=== PATIENT | male | born 1945 | race Caucasian/White ===

== ENCOUNTER 2017-10-31 20:10 | Emergency (ER) | payer BC ==
[~2017-10-31] VITALS: Ht 175.3 cm; Wt 85.9 kg
[~2017-10-31 20:10] MED LIST: CIALIS5 MG PO; NAPROSYN 2250 MG/TAB PO; PRILOSEC 20MG20 MG PO; WELLBUTRIN SR200 MG PO; ZOCOR 40MG40 MG PO
[2017-10-31 20:19] VITALS: TEMP 97.6
[2017-10-31 20:53] LABS: BASO % 0.3 % (0.0-2.0); EOS # 0.1 (0.0-0.7); EOS % 0.9 % (0-4.0); GRAN # 10.5 (1.4-6.5); GRAN % 80.3 % (42.2-75.2); HEMATOCRIT 50.6 % (42.0-52.0); HEMOGLOBIN 17.3 g/dl (13.5-18.0); LYMPH % 7.7 % (20.0-51.0); MEAN CELL VOLUME 89 fl (80.0-100.0); MEAN CORPUSCULAR HEMOGLOBIN 31 pg (27.0-31.0); MEAN CORPUSCULAR HGB CONC 34 g/dl (33.0-37.0); MONO # 1.4 (0.1-0.6); MONO % 10.4 % (1.7-9.3); PLATELET COUNT 184 K/mm3 (130-400); RED BLOOD COUNT 5.67 M/mm3 (4.20-5.60); REDCELL DISTRIBUTION WIDTH-CV 13.1 % (11.5-14.5)
[2017-10-31 21:04] LABS: ALBUMIN 4.8 gm/dL (3.5-5.0); BILIRUBIN,TOTAL 1.1 mg/dL (0.0-1.0); C-REACTIVE PROTEIN 2.5 mg/dL (0.0-0.9); CALCIUM 9.9 mg/dL (8.4-10.2); CREATININE, serum 1.01 mg/dL (0.66-1.25); POTASSIUM 4.1 mmol/L (3.4-5.0); TOTAL PROTEIN 7.5 gm/dL (6.4-8.2)
[2017-10-31 21:33] LABS: COLLECTION METHOD CLEAN CATCH
[2017-10-31 21:38] LABS: PH 7 (5-8); SQUAMOUS EPITHELIAL 0-2 /hpf; URINE APPEARANCE Clear; URINE BACTERIA None Seen /hpf; URINE BILIRUBIN Negative (NEGATIVE); URINE BLOOD Negative (NEGATIVE); URINE COLOR Yellow; URINE GLUCOSE Negative (NEGATIVE); URINE KETONE Negative (NEGATIVE); URINE LEUKOCYTE ESTERASE Negative (NEGATIVE); URINE NITRATE Negative (NEGATIVE); URINE PROTEIN(semi-quant) Negative (NEGATIVE); URINE RBC 0-2 /hpf; URINE UROBILINOGEN Negative (NEGATIVE)
[2017-10-31] MEDS ORDERED: ZOFRAN 4MG T4 MG/TAB PO (22:48)
[2017-10-31 23:23] VITALS: BP 133/78; PULSE 78
== END 2017-10-31 23:25 | disposition home or self-care (01) ==
LOC: COL.ER 20:10
PROVIDERS: Emergency Medicine
DX: K56.600 Partial intestinal obstruction, unspecified as to cause (principal); K21.9 Gastro-esophageal reflux disease without esophagitis; E78.5 Hyperlipidemia, unspecified
CPT/HCPCS: J7030; Q9967

== ENCOUNTER → 2019-01-09 | Emergency (ER) | payer BC ==
[~2019-01-09] VITALS: Ht 175.3 cm; Wt 81.8 kg
[~2019-01-09] MED LIST changes: +ZOFRAN 4MG T4 MG/TAB PO; +ZOFRAN ODT4 MG PO
[2019-01-09 14:16] VITALS: BP 180/74; TEMP 97.6
[2019-01-09 14:49] LABS: BASO % 0.4 % (0.0-2.0); EOS % 0.2 % (0-4.0); GRAN # 3.8 (1.4-6.5); GRAN % 80.5 % (42.2-75.2); LYMPH # 0.3 (1.2-3.4); LYMPH % 6.8 % (20.0-51.0); MEAN CELL VOLUME 89 fl (80.0-100.0); MEAN CORPUSCULAR HGB CONC 35 g/dl (33.0-37.0); MEAN PLATELET VOLUME 9.3 fl (7.4-10.4); MONO # 0.6 (0.1-0.6); MONO % 11.9 % (1.7-9.3); PLATELET COUNT 193 K/mm3 (130-400); RED BLOOD COUNT 6.32 M/mm3 (4.20-5.60); REDCELL DISTRIBUTION WIDTH-CV 13.3 % (11.5-14.5)
[2019-01-09 14:51] LABS: HEMATOCRIT 56.4 % (42.0-52.0); HEMOGLOBIN 19.6 g/dl (13.5-18.0); MEAN CORPUSCULAR HEMOGLOBIN 31 pg (27.0-31.0)
[2019-01-09 15:01] LABS: ALBUMIN 4.5 gm/dL (3.5-5.0); BILIRUBIN,TOTAL 0.8 mg/dL (0.0-1.0); CALCIUM 9.4 mg/dL (8.4-10.2); CREATININE, serum 0.98 mg/dL (0.66-1.25); POTASSIUM 4.2 mmol/L (3.4-5.0); TOTAL PROTEIN 7.9 gm/dL (6.4-8.2)
[2019-01-09 15:12] LABS: C-REACTIVE PROTEIN 14.9 mg/dL (0.0-0.9)
[2019-01-09 16:08] LABS: BAND 17 % (0-10); LYMPHOCYTE 9 % (20.0-51.0); NEUTROPHILS 58 % (42.0-75.2); PLATELET ESTIMATE NORMAL (NORMAL)
[2019-01-09 16:56] VITALS: PULSE 73
== END ==
LOC: COL.ER 14:11
PROVIDERS: Emergency Medicine
DX: K52.9 Noninfective gastroenteritis and colitis, unspecified (principal)
CPT/HCPCS: J0780; J2405; J7030; Q9967

== ENCOUNTER → 2021-03-26 | Outpatient (CLI) | payer BC | LOC: MHCPAIN 14:13 | DX: M47.817 Spondylosis without myelopathy or radiculopathy, lumbosacral region (principal); M54.5 Low back pain; M53.3 Sacrococcygeal disorders, not elsewhere classified; G89.29 Other chronic pain | CPT/HCPCS: G0463 ==

== ENCOUNTER → 2021-04-01 | Outpatient (CLI) | payer BC | LOC: MHCPAIN 12:10 | DX: M47.817 Spondylosis without myelopathy or radiculopathy, lumbosacral region (principal); M54.16 Radiculopathy, lumbar region | CPT/HCPCS: J1100; Q9967 ==

== ENCOUNTER → 2021-04-16 | Outpatient (CLI) | payer BC | LOC: MHCPAIN 13:20 | DX: M47.817 Spondylosis without myelopathy or radiculopathy, lumbosacral region (principal); M53.3 Sacrococcygeal disorders, not elsewhere classified; M54.16 Radiculopathy, lumbar region | CPT/HCPCS: G0463 ==

== ENCOUNTER → 2021-04-22 | Outpatient (CLI) | payer BC | LOC: MHCPAIN 10:28 | DX: M47.817 Spondylosis without myelopathy or radiculopathy, lumbosacral region (principal); M54.16 Radiculopathy, lumbar region | CPT/HCPCS: J1100; Q9967 ==

== ENCOUNTER → 2021-05-08 | Outpatient (CLI) | payer BC | LOC: MHCPAIN 12:38 | DX: M47.816 Spondylosis without myelopathy or radiculopathy, lumbar region (principal); M54.16 Radiculopathy, lumbar region; M53.3 Sacrococcygeal disorders, not elsewhere classified | CPT/HCPCS: G0463 ==

== ENCOUNTER 2021-06-27 09:45 | Outpatient (RCR) | payer BC | END 2021-07-02 | disposition still patient (30) | LOC: WSPT | DX: M47.896 Other spondylosis, lumbar region (principal); M53.3 Sacrococcygeal disorders, not elsewhere classified ==

== ENCOUNTER → 2021-07-17 | Outpatient (CLI) | payer BC | LOC: MHCPAIN 11:50 | DX: M47.816 Spondylosis without myelopathy or radiculopathy, lumbar region (principal); M53.3 Sacrococcygeal disorders, not elsewhere classified; M48.062 Spinal stenosis, lumbar region with neurogenic claudication; M54.16 Radiculopathy, lumbar region | CPT/HCPCS: G0463 ==

== ENCOUNTER 2021-10-04 10:15 | Outpatient (RCR) | payer BC | END 2021-10-04 12:09 | disposition home or self-care (01) | LOC: MKS.ESL.PT 10:15 | DX: H81.13 Benign paroxysmal vertigo, bilateral (principal) ==

== ENCOUNTER → 2022-01-10 | Outpatient (CLI) | payer BC | LOC: ZCOL.LAB 09:52 | DX: Z01.812 Encounter for preprocedural laboratory examination (principal); Z20.822 Contact with and (suspected) exposure to COVID-19 ==

== ENCOUNTER 2022-02-01 14:47 | Observation (INO) | payer BC ==
[~2022-02-01] VITALS: Ht 175.3 cm; Wt 86.0 kg
[2022-02-01 15:27] LABS: HEMOGLOBIN 11.3 g/dl (13.5-18.0); MEAN CELL VOLUME 87 fl (80.0-100.0); MEAN CORPUSCULAR HEMOGLOBIN 28 pg (27-31); MEAN CORPUSCULAR HGB CONC 32 g/dl (33.0-37.0); MEAN PLATELET VOLUME 8.4 fl (7.4-10.4); PLATELET COUNT 513 K/mm3 (130-400); RED BLOOD COUNT 4.03 M/mm3 (4.20-5.60); REDCELL DISTRIBUTION WIDTH-CV 14.7 % (11.5-14.5)
[2022-02-01 15:29] LABS: HEMATOCRIT 35.1 % (42.0-52.0)
[2022-02-01 15:44] LABS: C-REACTIVE PROTEIN 0.36 mg/dL (0.00-0.50)
[2022-02-01 15:45] LABS: ALBUMIN 2.8 gm/dL (3.4-4.8); BILIRUBIN,TOTAL 0.5 mg/dL (0.2-1.2); CALCIUM 8.1 mg/dL (8.4-10.2); CREATININE, serum 0.86 mg/dL (0.72-1.25); POTASSIUM 4.6 mmol/L (3.5-4.5); TOTAL PROTEIN 5.7 gm/dL (6.2-8.1)
[2022-02-01 15:51] LABS: TROPONIN-I 0.015 ng/mL (0.00-0.033)
[2022-02-01 16:18] LABS: COLLECTION METHOD CLEAN CATCH
[2022-02-01 16:24] LABS: MUCOUS Present (NOT PRESENT); PH 6 (5-8); SQUAMOUS EPITHELIAL None Seen /hpf (0-10); URINE APPEARANCE Hazy (CLEAR/HAZY); URINE BACTERIA Rare /hpf (NONE SEEN); URINE BILIRUBIN Negative (NEGATIVE); URINE BLOOD Negative (NEGATIVE); URINE COLOR Yellow (YELLOW); URINE GLUCOSE Negative (NEGATIVE); URINE KETONE Negative (NEGATIVE); URINE LEUKOCYTE ESTERASE Negative (NEGATIVE); URINE NITRATE Negative (NEGATIVE); URINE PROTEIN(semi-quant) Negative (NEGATIVE); URINE RBC 0-2 /hpf (0-2); URINE UROBILINOGEN Negative (NEGATIVE)
[2022-02-01 16:43] LABS: BAND 5 % (0-10); BASOPHIL 1 % (0-2); EOSINOPHIL 1 % (0-4); HYPOCHROMIA 1+; LYMPHOCYTE 3 % (20.0-51.0); NEUTROPHILS 90 % (42.0-75.2); PLATELET ESTIMATE INCREASED (NORMAL)
[2022-02-01] MEDS ORDERED: LYRICA200 MG (17:28)
[2022-02-01] MEDS ORDERED: FLOMAX 0.40.4 MG/CAP (17:29)
[2022-02-01] MEDS ORDERED: DULCOLAX TAB5 MG PO (20:33)
[2022-02-01] MEDS ORDERED: ROXICODONE 55 MG/TAB PO (20:34)
[2022-02-01] MEDS ORDERED: TYLENOL 8 HR PO (20:35)
[2022-02-01 20:36] VITALS: BP 107/92; PULSE 95; TEMP 99.6
[2022-02-02] VITALS: BP 90/52; PULSE 82; TEMP 98.7
[2022-02-02 04:46] VITALS: BP 108/49; PULSE 78; TEMP 98.8
--- NOTE | 2022-02-02 06:38 | NUR ---
ASSUMED CARE OF PATIENT AFTER RECEIVING REPORT FROM ER. ADMISSION HISTORY AND ASSESSMENT COMPLETED. PATIENT DENIES QUESTIONS OR CONCERNS. PATIENT COMPLAINED OF NEUROPATHIC PAIN IN BILATERAL HANDS. NOTIFIED KI AMADO AND RECEIVED ORDER FOR TYLENOL PER PATIENT'S REQUEST. SPINAL PRECAUTIONS MAINTAINED PER PATIENT'S POST OP INSTRUCTIONS. NO ACUTE EVENTS OVERNIGHT. PATIENT CONCERNED ABOUT CONSITPATION, REPORTS LAST BM 01/30/22. PRUNE JUICE PROVIDED. BEDSIDE REPORT TO BE GIVEN TO ONCOMING SHIFT.
[2022-02-02 07:11] LABS: BASO % 0.2 % (0.0-2.0); EOS # 0.1 K/mm3 (0.0-0.7); EOS % 0.3 % (0.0-4.0); GRAN # 15.2 K/mm3 (1.4-6.5); GRAN % 88.5 % (42.2-75.2); LYMPH # 1.2 K/mm3 (1.2-3.4); LYMPH % 6.9 % (20.0-51.0); MEAN CELL VOLUME 88 fl (80.0-100.0); MEAN CORPUSCULAR HGB CONC 32 g/dl (33.0-37.0); MEAN PLATELET VOLUME 8.8 fl (7.4-10.4); MONO # 0.6 K/mm3 (0.1-0.6); MONO % 3.7 % (1.7-9.3); PLATELET COUNT 444 K/mm3 (130-400); RED BLOOD COUNT 3.46 M/mm3 (4.20-5.60)
[2022-02-02 07:17] LABS: HEMATOCRIT 30.3 % (42.0-52.0); HEMOGLOBIN 9.7 g/dl (13.5-18.0); MEAN CORPUSCULAR HEMOGLOBIN 28 pg (27-31)
[2022-02-02 07:18] LABS: CALCIUM 8.1 mg/dL (8.4-10.2); CREATININE, serum 0.74 mg/dL (0.72-1.25); POTASSIUM 4.5 mmol/L (3.5-4.5)
[2022-02-02 08:09] VITALS: BP 112/48; PULSE 79; TEMP 98.3
--- NOTE | 2022-02-02 08:10 | NUR ---
PT LAYING SUPINE IN BED ON ROOM AIR. PT STATES THAT HE IS HAVING SOME PAIN IN HIS HANDS. RATES IT A 3 OUT OF 10. TYLENOL WAS GIVEN PER PT REQUEST. PT STATES THAT HE IS NOT HAVING ANY DIZZINESS AT THIS TIME. PT STATES THAT HE NEEDS HIS URINAL REMOVED AND EMPITIED. THIS WAS DONE. PT STATES NO OTHER NEEDS AT THIS TIME. CALL LIGHT IS WITHIN REACH.
[2022-02-02 11:38] VITALS: BP 120/63; PULSE 78; TEMP 98.3
== END 2022-02-02 13:55 | disposition home or self-care (01) ==
LOC: COL.ER 14:47 → MEDICAL 18:30
PROVIDERS: Emergency Medicine; Personal Emergency Response Attendant; ADMIT Student in an Organized Health Care Education/Training Program
DX: R55 Syncope and collapse (principal); K59.00 Constipation, unspecified; D72.829 Elevated white blood cell count, unspecified; E78.5 Hyperlipidemia, unspecified; G47.33 Obstructive sleep apnea (adult) (pediatric)
CPT/HCPCS: G0378; J7030; Q9967

== ENCOUNTER 2022-12-02 15:19 | Emergency (ER) | payer MEDICARE, BC ==
[~2022-12-02] VITALS: Ht 175.3 cm; Wt 85.5 kg
[~2022-12-02 15:19] MED LIST changes: +DULCOLAX TAB5 MG PO; +FLOMAX 0.40.4 MG/CAP; +LYRICA200 MG; +ROXICODONE 55 MG/TAB PO; +TYLENOL 8 HR PO
[2022-12-02 15:23] VITALS: TEMP 97.5
[2022-12-02 15:38] LABS: BASO % 0.5 % (0.0-2.0); EOS # 0.1 K/mm3 (0.0-0.7); EOS % 1.8 % (0.0-4.0); GRAN # 4.3 K/mm3 (1.4-6.5); GRAN % 67.6 % (42.2-75.2); HEMATOCRIT 43.9 % (42.0-52.0); HEMOGLOBIN 14.9 g/dl (13.5-18.0); LYMPH # 1.1 K/mm3 (1.2-3.4); LYMPH % 16.7 % (20.0-51.0); MEAN CELL VOLUME 88 fl (80.0-100.0); MEAN CORPUSCULAR HEMOGLOBIN 30 pg (27-31); MEAN CORPUSCULAR HGB CONC 34 g/dl (33.0-37.0); MEAN PLATELET VOLUME 8.8 fl (7.4-10.4); MONO # 0.8 K/mm3 (0.1-0.6); MONO % 13.1 % (1.7-9.3); PLATELET COUNT 195 K/mm3 (130-400); RED BLOOD COUNT 4.99 M/mm3 (4.20-5.60); REDCELL DISTRIBUTION WIDTH-CV 14.1 % (11.5-14.5)
[2022-12-02 15:46] LABS: INR 1.1 (0.8-3.0); PROTHROMBIN TIME 12.3 SECONDS (9.7-12.8)
[2022-12-02 15:55] LABS: ALBUMIN 4.3 gm/dL (3.4-4.8); BILIRUBIN,TOTAL 0.6 mg/dL (0.2-1.2); CALCIUM 9.8 mg/dL (8.4-10.2); CREATININE, serum 0.97 mg/dL (0.72-1.25); POTASSIUM 4.2 mmol/L (3.5-4.5); TOTAL PROTEIN 7.4 gm/dL (6.2-8.1)
[2022-12-02 16:02] LABS: TROPONIN-I 0.013 ng/mL (0.00-0.033)
[2022-12-02 16:03] LABS: C-REACTIVE PROTEIN 0.07 mg/dL (0.00-0.50)
[2022-12-02 18:58] VITALS: BP 149/75; PULSE 72
== END 2022-12-02 18:58 | disposition home or self-care (01) ==
LOC: COL.ER 15:19
PROVIDERS: Emergency Medicine
DX: R07.89 Other chest pain (principal); R00.2 Palpitations; R42 Dizziness and giddiness; Z87.891 Personal history of nicotine dependence
CPT/HCPCS: J7030

== ENCOUNTER 2023-02-23 11:22 | Observation (INO) | payer MEDICARE, BC ==
[~2023-02-23] VITALS: Ht 175.3 cm; Wt 82.3 kg
[2023-02-23 11:56] LABS: BASO % 0.3 % (0.0-2.0); EOS # 0.1 K/mm3 (0.0-0.7); EOS % 0.5 % (0.0-4.0); GRAN # 9.8 K/mm3 (1.4-6.5); GRAN % 82.9 % (42.2-75.2); HEMATOCRIT 45.2 % (42.0-52.0); HEMOGLOBIN 14.9 g/dl (13.5-18.0); LYMPH # 0.7 K/mm3 (1.2-3.4); LYMPH % 5.6 % (20.0-51.0); MEAN CELL VOLUME 92 fl (80.0-100.0); MEAN CORPUSCULAR HEMOGLOBIN 30 pg (27-31); MEAN CORPUSCULAR HGB CONC 33 g/dl (33.0-37.0); MEAN PLATELET VOLUME 8.9 fl (7.4-10.4); MONO # 1.2 K/mm3 (0.1-0.6); MONO % 10.4 % (1.7-9.3); PLATELET COUNT 160 K/mm3 (130-400); RED BLOOD COUNT 4.92 M/mm3 (4.20-5.60); REDCELL DISTRIBUTION WIDTH-CV 12.7 % (11.5-14.5)
[2023-02-23 12:21] LABS: ALANINE AMINOTRANSFERASE 28 U/L (0-55); ALBUMIN 4.1 gm/dL (3.4-4.8); ALKALINE PHOSPHATASE 85 U/L (40-150); ANION GAP 8 mmol/L (7-16); AST,SGOT 24 U/L (5-34); BILIRUBIN,TOTAL 0.6 mg/dL (0.2-1.2); BLOOD UREA NITROGEN 22 mg/dL (8-26); CALCIUM 9.8 mg/dL (8.4-10.2); CARBON DIOXIDE 22 mmol/L (23-31); CHLORIDE 108 mmol/L (98-107); CREATININE, serum 0.89 mg/dL (0.72-1.25); GLUCOSE 98 mg/dL (70-99); POTASSIUM 4.5 mmol/L (3.5-4.5); SODIUM 138 mmol/L (136-145); TOTAL PROTEIN 7.1 gm/dL (6.2-8.1)
[2023-02-23 12:33] LABS: TROPONIN-I < 0.010 ng/mL (0.00-0.033)
[2023-02-23 12:41] LABS: COLLECTION METHOD CLEAN CATCH
[2023-02-23 12:55] LABS: SQUAMOUS EPITHELIAL 0-2 /hpf (0-10); URINE BACTERIA Rare /hpf (NONE SEEN)
[2023-02-23 12:57] LABS: URINE APPEARANCE Hazy (CLEAR/HAZY); URINE COLOR Yellow (YELLOW)
[2023-02-23 12:58] LABS: URINE BLOOD TRACE-LYSED (NEGATIVE); URINE GLUCOSE Negative (NEGATIVE); URINE KETONE Negative (NEGATIVE); URINE NITRATE Positive (NEGATIVE); URINE PROTEIN(semi-quant) Negative (NEGATIVE); URINE UROBILINOGEN 0.2 E.U/dL (0.2-1.0)
[2023-02-23] MEDS ORDERED: BRILINTA90 MG PO (13:00)
[2023-02-23] MEDS ORDERED: ASPIRIN 81M81 MG/TA2 PO (13:01)
[2023-02-23] MEDS ORDERED: CRESTOR20 MG PO (13:02)
[2023-02-23] MEDS ORDERED: VITAMIN D3400 I1 PO (14:56)
[2023-02-23] MEDS ORDERED: VITAMIN B COMPL1 SGL PO (14:56)
[2023-02-23] MEDS ORDERED: PRESERVISION1 SGL PO (14:57)
[2023-02-23] MEDS ORDERED: OMEGA-3 1000 MG1 CAP PO (14:57)
--- NOTE | 2023-02-23 15:05 | NUR ---
arrived on unit from ED per WC and assisted into bed at 1420, Artur SOW in to see patient at that time, full admission and physical assessment completed, see interventions for further info, telemetry in place, denies pain or needs at this time
[2023-02-23 15:39] VITALS: BP 138/73; PULSE 70; TEMP 98.1
[2023-02-23 15:54] VITALS: BP_SYST 138
--- NOTE | 2023-02-23 16:39 | NUR ---
states now is seeing blood in his urine and having more frequency and burning, Dr Draper notified and will place orders
[2023-02-23 16:40] VITALS: BP_SYST 138
--- NOTE | 2023-02-23 17:04 | NUR ---
medicated with pryidium 100mg
--- NOTE | 2023-02-23 18:27 | NUR ---
continues to have frequent urination, also states has "chunks" of blood, provided urinal and asked him to use this and notify nurse after he voids, verbalizes understanding, also encouraged to start drinking more water
--- NOTE | 2023-02-23 18:56 | NUR ---
report given to SEAN Bell patient requesting tylenol and me dicated with tylenol 1000mg
[2023-02-23 19:40] VITALS: BP 131/111; PULSE 73; TEMP 98.6
[2023-02-23 23:38] VITALS: BP 116/56; PULSE 80; TEMP 98.3
[2023-02-24 04:03] VITALS: BP 110/49; PULSE 79; TEMP 98
[2023-02-24 08:00] VITALS: BP 141/65; PULSE 73; TEMP 99.6
[2023-02-24 11:50] VITALS: BP 125/66; PULSE 73; TEMP 99
[2023-02-24] MEDS ORDERED: CEFTIN500 MG PO (11:59)
--- NOTE | 2023-02-24 12:07 | NUR ---
Initial visit: Bariatric Coordinator stopped by room on rounds. Pt was resting and content with by his side. Pt has no needs right now. Pt and appreciated the visit. Bariatric Coordinator will follow up as needed.
--- NOTE | 2023-02-24 13:30 | NUR ---
Patient discharged to home, taken by his . Educated on discharge instructions and new medications, pt verbalized understanding. IV removed prior to discharge. Safely assisted patient to car.
[2023-02-24 14:46] LABS: CREATININE, serum 0.84 mg/dL (0.72-1.25); POTASSIUM 3.9 mmol/L (3.5-4.5)
[2023-02-24 14:47] LABS: ALBUMIN 3.8 gm/dL (3.4-4.8); CALCIUM 9.4 mg/dL (8.4-10.2); MAGNESIUM 2.1 mg/dL (1.6-2.6); PHOSPHOROUS 3.6 mg/dL (2.3-4.7)
[2023-02-24 16:04] LABS: BASO % 0.3 % (0.0-2.0); EOS # 0.1 K/mm3 (0.0-0.7); EOS % 0.5 % (0.0-4.0); GRAN # 8.7 K/mm3 (1.4-6.5); GRAN % 82.7 % (42.2-75.2); HEMATOCRIT 42.3 % (42.0-52.0); HEMOGLOBIN 14.5 g/dl (13.5-18.0); LYMPH # 0.8 K/mm3 (1.2-3.4); LYMPH % 7.1 % (20.0-51.0); MEAN CELL VOLUME 88 fl (80.0-100.0); MEAN CORPUSCULAR HEMOGLOBIN 30 pg (27-31); MEAN CORPUSCULAR HGB CONC 34 g/dl (33.0-37.0); MEAN PLATELET VOLUME 9.1 fl (7.4-10.4); PLATELET COUNT 177 K/mm3 (130-400); RED BLOOD COUNT 4.83 M/mm3 (4.20-5.60); REDCELL DISTRIBUTION WIDTH-CV 12.9 % (11.5-14.5)
== END 2023-02-24 13:20 | disposition home or self-care (01) ==
LOC: COL.ER 11:22 → MEDICAL 12:49
PROVIDERS: Emergency Medicine; ADMIT Internal Medicine
DX: R07.9 Chest pain, unspecified (principal); I25.10 Atherosclerotic heart disease of native coronary artery without angina pectoris; N39.0 Urinary tract infection, site not specified; Z98.1 Arthrodesis status; E78.5 Hyperlipidemia, unspecified; G47.33 Obstructive sleep apnea (adult) (pediatric); N40.0 Benign prostatic hyperplasia without lower urinary tract symptoms; F32.A Depression, unspecified; K21.9 Gastro-esophageal reflux disease without esophagitis; Z79.899 Other long term (current) drug therapy; Z87.891 Personal history of nicotine dependence; Z95.5 Presence of coronary angioplasty implant and graft
CPT/HCPCS: G0378; J0696

== ENCOUNTER 2023-10-23 11:03 | Inpatient (IN) | payer MEDICARE, BC ==
[2023-10-23] VITALS (10 sets, daily range): BP systolic 104–166; BP diastolic 52–88; PULSE 71–85; TEMP 98.1–98.3
[~2023-10-23] VITALS: Ht 175.3 cm; Wt 78.6 kg
[~2023-10-23 11:03] MED LIST changes: +ASPIRIN 81M81 MG/TA2 PO; +BRILINTA90 MG PO; +CEFTIN500 MG PO; +CRESTOR20 MG PO; +OMEGA-3 1000 MG1 CAP PO; +PRESERVISION1 SGL PO; +VITAMIN B COMPL1 SGL PO; +VITAMIN D3400 I1 PO
[2023-10-23 11:33] LABS: BASO # 0.1 K/mm3 (0.0-0.2); BASO % 0.9 % (0.0-2.0); EOS # 0.1 K/mm3 (0.0-0.7); EOS % 1.8 % (0.0-4.0); GRAN # 3.4 K/mm3 (1.4-6.5); GRAN % 60.4 % (42.2-75.2); HEMATOCRIT 46.7 % (42.0-52.0); HEMOGLOBIN 15.7 g/dl (13.5-18.0); LYMPH # 1.4 K/mm3 (1.2-3.4); LYMPH % 25.3 % (20.0-51.0); MEAN CELL VOLUME 93 fl (80.0-100.0); MEAN CORPUSCULAR HEMOGLOBIN 31 pg (27-31); MEAN CORPUSCULAR HGB CONC 34 g/dl (33.0-37.0); MEAN PLATELET VOLUME 8.9 fl (7.4-10.4); MONO # 0.6 K/mm3 (0.1-0.6); MONO % 11.2 % (1.7-9.3); PLATELET COUNT 167 K/mm3 (130-400); RED BLOOD COUNT 5.02 M/mm3 (4.20-5.60); REDCELL DISTRIBUTION WIDTH-CV 13.5 % (11.5-14.5)
[2023-10-23 11:44] LABS: ALANINE AMINOTRANSFERASE 28 U/L (0-55); ALBUMIN 4.2 gm/dL (3.4-4.8); ALKALINE PHOSPHATASE 73 U/L (40-150); ANION GAP 10 mmol/L (7-16); AST,SGOT 23 U/L (5-34); BILIRUBIN,TOTAL 0.7 mg/dL (0.2-1.2); BLOOD UREA NITROGEN 19 mg/dL (8-26); CARBON DIOXIDE 22 mmol/L (23-31); CHLORIDE 108 mmol/L (98-107); CREATININE, serum 0.95 mg/dL (0.72-1.25); GLUCOSE 125 mg/dL (70-99); POTASSIUM 4.5 mmol/L (3.5-4.5); SODIUM 140 mmol/L (136-145); TOTAL PROTEIN 7.2 gm/dL (6.2-8.1)
[2023-10-23 11:52] LABS: TROPONIN-I < 0.010 ng/mL (0.00-0.033)
[2023-10-23] MEDS ORDERED: VITAMIN B12 1541 TAB PO (11:55)
[2023-10-23] MEDS ORDERED: VITAMIN D31000 I1 PO (11:55)
[2023-10-23] MEDS ORDERED: TYLENOL 325MG325 MG PO (11:56)
[2023-10-23] MEDS ORDERED: DULCOLAX STOOL100 MG PO (11:56)
[2023-10-23] MEDS ORDERED: 1/2 NS 1,000 ML IV SCH ×2 (14:15→15:45)
--- NOTE | 2023-10-23 14:57 | NUR ---
Refer to [facility] Report for procedural sedation/notes
[2023-10-23] MEDS ORDERED: fentaNYL 50 MCG/ML 2 ML VIAL IV SCH (15:17)
[2023-10-23] MEDS ORDERED: Midazolam 2 MG/2 ML VIAL IV SCH (15:17)
[2023-10-23] MEDS ORDERED: Iohexol 350 - 100 ML VIAL INCOR ONE (15:18)
[2023-10-23] MEDS ORDERED: Heparin 1,000 UNITS/ML 10 ML Multi-Dose VIAL IV SCH (15:18)
--- NOTE | 2023-10-23 15:20 | NUR ---
REPORT RECEIVED FROM YOON IN ASSISTANT COACH
[2023-10-23] MEDS ORDERED: Verapamil 2.5 MG/ML 2 ML VIAL IA SCH (15:27)
[2023-10-23] MEDS ORDERED: Nitroglycerin 100 MCG/ML (Cath Lab) 10 ML VIAL IA SCH (15:29)
--- NOTE | 2023-10-23 16:02 | NUR ---
Pt to [facility] 315 - recieved by WilderRN - vital signs initiated and access site reviewed together. All questions answered
--- NOTE | 2023-10-23 16:06 | NUR ---
PT ON THE FLOOR FROM [employer], AT BESIDE. PT STARTED ON POST OP VITALS, VSS. COMPRESSION CUFF TO RIGHT RADIAL SITE, NO BLEEDING NOTED. DR WALSH AT BEDSIDE.
[2023-10-23] MEDS ORDERED: Nitroglycerin 0.1 MG/HR DAILY PATCH TD SCH (16:16)
--- NOTE | 2023-10-23 16:32 | NUR ---
MED REC COMPLETE
--- NOTE | 2023-10-23 17:22 | NUR ---
NITRO PATCH PLACE TO RIGHT CHEST. 3MLS OF AIR RELEASED FROM RIGHT RADIAL COMPRESSION CUFF
--- NOTE | 2023-10-23 17:30 | NUR ---
PT RESTING IN BED UPON ENTERING, FLUIDS RUNNING PER ORDER. PT AMBULATING TO THE BATHROOM STANDBY, PT STEADY ON HIS FEET. PT ASKING THIS NURSE IF HE CAN GET UP AND GO HE PLEASES. THIS NURSE NOTIFIED PT THAT DUE TO THE IV POLE IT WOULD BE BETTER TO CALL FOR ASSISTANCE, PT VERBALIZED UNDERSTANDING.
--- NOTE | 2023-10-23 17:37 | NUR ---
REMAINING AIR REMOVED FROM RIGHT RADIAL COMPRESSION BAND. NO SIGNS ON BLEEDING NOTED. PT EDUCATED ON BLEEDING RISK AND VERBALIZED UNDERSTANDING. BANDAID APPLIED TO SITE
--- NOTE | 2023-10-23 17:40 | NUR ---
PT EATING DINNERE. FLUIDS RUNNING PER ORDER. POST OP VITALS COMPLETE. PT DENIES NEEDS AT THIS TIME. CALL LIGHT IN REACH, BED IN LOWEST POSITION
--- NOTE | 2023-10-23 17:43 | NUR ---
DUPLICATE ORDER FOR 1/2 NS TO RUN IF PT ON A BICARB DRIP ORDERED. PT WASNT ON A BICARB DRIP. KASIA FROM CARDIOLOGY CALLED TO ASK IF ORDER COULD BE DC'D. NO ANSWER
--- NOTE | 2023-10-23 20:00 | NUR ---
UPON SHIFT ASSESSMENT, KRISHAN WAS AWAKE IN BED AND CHEERFUL. HE IS AXO X4 AND CURRENTLY DENIES ANY ANGINA OR SOA. RT RADIAL CATH SITE IS CDI WITH NO NOTED EDEMA AND PERIPHERAL PULSES ARE GOOD. VSS ARE WNL AND TELE IS NS. CALL LIGHT WITHIN REACH.
[2023-10-23] MEDS ORDERED: Eye Formula MVI w/Minerals TABLET PO SCH (21:00)
[2023-10-23] MEDS ORDERED: buPROPion SR (12-HR) 100 MG TAB PO SCH (21:00)
[2023-10-24] VITALS: BP_SYST 130
[2023-10-24 03:47] VITALS: BP 119/67; PULSE 69; TEMP 98.8
[2023-10-24 05:00] VITALS: BP_SYST 119
--- NOTE | 2023-10-24 06:41 | NUR ---
MIGDALIA KANG", HAD NO EMERGENT STATUS CHANGES. HE DENIES SOA AND CHEST PAIN AT THIS TIME. RT RADIAL CATH SITE IS CDI. TELE IS NS. VSS WNL AND CALL LIGHT WITHIN REACH.
[2023-10-24] MEDS ORDERED: Omeprazole 20 MG **** subs to Pantoprazole 40 MG PO SCH (07:00)
[2023-10-24 07:20] VITALS: BP 164/68; PULSE 70; TEMP 98
[2023-10-24 09:00] VITALS: BP_SYST 164
[2023-10-24] MEDS ORDERED: Cyanocobalamin (Vit B-12) 1,000 MCG TAB PO SCH (09:00)
[2023-10-24] MEDS ORDERED: Cholecalciferol (Vit D3) 1000 Units TAB PO SCH (09:00)
[2023-10-24] MEDS ORDERED: CRESTOR40 MG PO (09:01)
[2023-10-24] MEDS ORDERED: NITRO-DUR0.1 MG/PAT TD (09:02)
[2023-10-24] MEDS ORDERED: NITROSTAT0.4 MG/TAB SL (09:04)
--- NOTE | 2023-10-24 09:30 | NUR ---
PATIENT ALERT AND ORIENTED X4. PATIENT DENIES SOB AND REPORTS CHEST TIGHNESS AT TIMES RATING IT AT A 1/10. PATIENT ATE BREAKFAST THIS MORNING. DENIED NAUSEA. PATIENT MEDS WERE PER EMAR. CALL LIGHT WITHIN REACH. BED AT LOWEST POSITION.
--- NOTE | 2023-10-24 11:00 | NUR ---
PATIENT DISCHARGE INSTRUCTIONS GIVEN. PATIENT QUESTIONS WERE ANSWERED. WAS AT BEDSIDE. PATIENT TELE D/C AND IV REMOVED. PATIENT ESCORTED OUT OF UNIT BY VIA [facility] STAFF.
--- NOTE | 2023-10-24 11:27 | NUR ---
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 Patient attends the same congregation as another Single Resource Boss in this hospital. He had another Single Resource Boss from this hospital as a student at one time. Through discussion, this Single Resource Boss learned that Patient knows some of the same people at other healthcare facilities as this Single Resource Boss knows. Patient's Swapna was visiting. 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 Plan of Care: This Single Resource Boss prayed for Patient and his and the lives they touched while in [employer] ministry. This Single Resource Boss prayed for Patient's safe return home and his health.
== END 2023-10-24 11:00 | disposition home or self-care (01) | DRG 282 ==
LOC: COL.ER 11:03 → MEDICAL 14:33
PROVIDERS: Physician Assistant; ADMIT Internal Medicine
PROC: 4A023N7 Measurement of Cardiac Sampling and Pressure, Left Heart, Percutaneous Approach (ICD-10-PCS; principal; 2023-10-23)
PROC: B2111ZZ Fluoroscopy of Multiple Coronary Arteries using Low Osmolar Contrast (ICD-10-PCS; 2023-10-23)
DX: I21.4 Non-ST elevation (NSTEMI) myocardial infarction (principal); I25.10 Atherosclerotic heart disease of native coronary artery without angina pectoris; K21.9 Gastro-esophageal reflux disease without esophagitis; E78.5 Hyperlipidemia, unspecified; N40.0 Benign prostatic hyperplasia without lower urinary tract symptoms; F32.A Depression, unspecified; I08.0 Rheumatic disorders of both mitral and aortic valves; Z79.82 Long term (current) use of aspirin; Z88.5 Allergy status to narcotic agent; Z95.5 Presence of coronary angioplasty implant and graft; Z87.891 Personal history of nicotine dependence; Z79.899 Other long term (current) drug therapy; Z23 Encounter for immunization
CPT/HCPCS: J1644; J2250; J3010; Q9967

== ENCOUNTER → 2024-02-18 | Outpatient (CLI) | payer MEDICARE ==
[~2024-02-18] MED LIST changes: +CRESTOR40 MG PO; +DULCOLAX STOOL100 MG PO; +Iohexol 300 - 100 ML VIAL IV ONE; +NITRO-DUR0.1 MG/PAT TD; +NITROSTAT0.4 MG/TAB SL; +NS 100 ML IV SCH; +TYLENOL 325MG325 MG PO; +VITAMIN B12 1541 TAB PO; +VITAMIN D31000 I1 PO
== END ==
LOC: COL.RAD 08:44
DX: R91.1 Solitary pulmonary nodule (principal)
CPT/HCPCS: Q9967

== ENCOUNTER 2024-06-22 11:54 | Emergency (ER) | payer MEDICARE, BC ==
[~2024-06-22] VITALS: Ht 175.3 cm; Wt 76.8 kg
[~2024-06-22 11:54] MED LIST changes: -Iohexol 300 - 100 ML VIAL IV ONE; -NS 100 ML IV SCH
[2024-06-22 11:58] VITALS: TEMP 98.3
[2024-06-22] MEDS ORDERED: NS 500 ML IV ONE (12:15)
[2024-06-22 12:19] LABS: BASO # 0.1 K/mm3 (0.0-0.2); BASO % 0.4 % (0.0-2.0); EOS # 0.1 K/mm3 (0.0-0.7); EOS % 0.6 % (0.0-4.0); GRAN # 9.4 K/mm3 (1.4-6.5); GRAN % 75.3 % (42.2-75.2); HEMATOCRIT 30.4 % (42.0-52.0); HEMOGLOBIN 9.7 g/dl (13.5-18.0); LYMPH # 1.4 K/mm3 (1.2-3.4); LYMPH % 11.4 % (20.0-51.0); MEAN CELL VOLUME 93 fl (80.0-100.0); MEAN CORPUSCULAR HEMOGLOBIN 30 pg (27-31); MEAN CORPUSCULAR HGB CONC 32 g/dl (33.0-37.0); MEAN PLATELET VOLUME 8.4 fl (7.4-10.4); MONO # 1.4 K/mm3 (0.1-0.6); MONO % 11.1 % (1.7-9.3); PLATELET COUNT 614 K/mm3 (130-400); RED BLOOD COUNT 3.27 M/mm3 (4.20-5.60); REDCELL DISTRIBUTION WIDTH-CV 14.8 % (11.5-14.5)
[2024-06-22 12:30] LABS: ALANINE AMINOTRANSFERASE 93 U/L (0-55); ALKALINE PHOSPHATASE 165 U/L (40-150); ANION GAP 12 mmol/L (7-16); AST,SGOT 34 U/L (5-34); BILIRUBIN,TOTAL 1.1 mg/dL (0.2-1.2); BLOOD UREA NITROGEN 16 mg/dL (8-26); CALCIUM 9.2 mg/dL (8.4-10.2); CHLORIDE 103 mEq/L (98-107); CREATININE, serum 0.85 mg/dL (0.72-1.25); GLUCOSE 108 mg/dL (70-99); POTASSIUM 4.7 mEq/L (3.5-4.5); SODIUM 136 mEq/L (136-145); TOTAL PROTEIN 6.5 g/dl (6.2-8.1)
[2024-06-22 12:37] LABS: TROPONIN-I < 0.010 ng/mL (0.00-0.033)
[2024-06-22 13:26] LABS: COLLECTION METHOD CLEAN CATCH
[2024-06-22] MEDS ORDERED: NS 1,000 ML IV ONE (13:30)
[2024-06-22 13:38] LABS: PH 6.5 (5.0-8.5); URINE APPEARANCE CLEAR (CLEAR/HAZY); URINE BLOOD NEGATIVE (NEGATIVE); URINE COLOR Dark Yellow (YELLOW); URINE GLUCOSE NEGATIVE (NEGATIVE); URINE KETONE TRACE (NEGATIVE); URINE NITRATE NEGATIVE (NEGATIVE); URINE PROTEIN(semi-quant) TRACE (NEGATIVE)
[2024-06-22 14:18] VITALS: BP 107/56; PULSE 64
== END 2024-06-22 14:28 | disposition home or self-care (01) ==
LOC: COL.ER 11:54
PROVIDERS: Personal Emergency Response Attendant
DX: R55 Syncope and collapse (principal); E86.0 Dehydration
CPT/HCPCS: J7030; J7040